=== PATIENT | male | born 1965 | race Caucasian/White ===

== ENCOUNTER 2017-07-18 06:51 | Day surgery (SDC) | payer MEDICAID, OTHER ==
[~2017-07-18] VITALS: Ht 175.3 cm; Wt 80.4 kg
[~2017-07-18 06:51] MED LIST: ALPR0.254 PO; ASPI81TA27 PO; HYDR-4683 PO; OMEP20TA PO; TOPI25TA32 PO
[2017-07-18] MEDS ORDERED: LIDOCAINE 2%HCL (LOCAL ANESTH.) INJ 20ML MDV ONE (07:25)
[2017-07-18] MEDS ORDERED: IODIXANOL 320MG/ML 100ML BTL IV ONE ×2 (07:25→08:27)
[2017-07-18] MEDS ORDERED: ANGIOMAX 250 MG VIAL IV ONE (07:38)
[2017-07-18] MEDS ORDERED: fentaNYL CITRATE 100 MCG/2 ML VL ONE (07:39)
[2017-07-18] MEDS ORDERED: VERAPAMIL 2.5MG/ML INJ 2ML VIAL IV ONE (07:39)
[2017-07-18] MEDS ORDERED: SODIUM CHL 0.9% 0 ML ONE (07:39)
[2017-07-18] MEDS ORDERED: MIDAZOLAM HCL 1MG/1ML-2 ML VIAL ONE ×2 (07:39→08:14)
[2017-07-18] MEDS ORDERED: HEPARIN SODIUM (PORCINE) 5000 UNITS/ML 1ML VIAL ONE (08:27)
== END 2017-07-18 10:40 | disposition home or self-care (01) ==
LOC: CATH 06:51
PROVIDERS: ATTEND Internal Medicine
DX: R94.39 Abnormal result of other cardiovascular function study (principal); I99.8 Other disorder of circulatory system; Z88.0 Allergy status to penicillin; E66.9 Obesity, unspecified; Z88.8 Allergy status to other drugs, medicaments and biological substances; F17.210 Nicotine dependence, cigarettes, uncomplicated
CPT/HCPCS: C1769; C1894; J1644; J3010; J7030; 93458; 99152; 99153; J2250; Q9967